=== PATIENT | female | born 1935 | race Caucasian/White ===

== ENCOUNTER → 2017-08-23 | Outpatient (CLI) | payer MEDICARE ==
[~2017-08-23] MED LIST: ALBU8.5H IH; ALP25 PO; CITA-139 PO; CYCL10TA29 PO; ESCI20TA38 PO; ESTR42.5 VG; FLUT16SP20 NS; HYDR-4309 PO; IPRATROPIUM NASAL NS; LEVO88TA42 PO; LISI-351 PO; MECL12.5 PO; METF-407 PO; OMEP-137 PO; OMEP-153 PO; ONDA4TAB97 PO; PEN250 PO; PRED20TA6 PO; SIMV-54 PO; TRAM-420 PO
--- NOTE | 2017-08-27 20:36 | RADIOLOGY IMAGING REPORT ---
FACILITY: [facility] PATIENT NAME: GREYSON PEREZ : [id number] MR: [id number] V: [id number] EXAM DATE: ORDERING PHYSICIAN: SUNSHINE TEE TECHNOLOGIST: Norman Gallardo PROCEDURE: STRESS ECHOCARDIOGRAPHY COMPARISON: None. INDICATIONS: CHEST PAIN FINDINGS: After informed consent the patient was exercised using the Modified Steven protocol. She was able to complete the end of Stage 2 of the Modified Steven protocol at which time she achieved 3.4 Mets & 87% of her predicted maximum heart rate. She had normal blood pressure responses. Her oxygen saturation did decrease from 94% on 2L to 86% at the end of exercise. She had no complaints of any chest pain only complaints of shortness of breath. The patient does have a history of chronic obstructive pulmonary disease. The baseline EKG showed normal sinus rhythm with mild horizontal ST segment depression in the inferolateral leads. With exercise the patient had slightly more increase in ST segment depression reaching approximately 1mm of ST segment depression somewhat down sloping. She had no arrhythmias. ECHOCARDIOGRAPHIC PORTION OF THE STRESS TEST: At rest the patient had normal left ventricular ejection fraction of 70% with a Grade 1 decrease in diastolic function. She had a trace amount of mitral, tricuspid & pulmonic insufficiency & a moderate amount of aortic insufficiency. Estimated right ventricular systolic pressures were within normal ranges. The patient is noted to have mild left ventricular thickening somewhat symmetric measured at 1.2cm respectively on the septal & posterior wall. Also multiple liver cysts were noted. With exercise the patient had normal hyperdynamic response to exercise with no left ventricular segmental wall motion abnormalities noted. CONCLUSION: 1. Normal stress echocardiograph with normal LV function systolically at rest with hyperdynamic response to exercise & low probability of ischemia. 2. Grade 1 mild decrease in diastolic function. 3. Patient has chronic obstructive lung disease & she exercised on oxygen. Her oxygen saturation dropped from 94% & baseline to 86% at maximum exercise. She did complain of being short of breath but no complaints of any chest pains. 4. Patient had mild ST segment depression in the inferolateral leads that did increase with exercise but no specific wall motion abnormalities were noted & the patient had no complaints of any chest pains. 5. Mild concentric left ventricular thickening was noted but no evidence for any outflow tract obstruction. 6. There is a trace of mitral, tricuspid & pulmonic insufficiency with right ventricular systolic pressures within normal ranges. There was a moderate amount of aortic insufficiency with no aortic stenosis. 7. Note was made of multiple liver cysts seen. Dictated by: Makc Batres M.D. on 08/23/2017 at 11:14 Transcribed by: EMELI on 08/27/2017 at 9:30 Approved by: Mack Batres M.D. on 08/27/2017 at 20:34 [facility]
== END ==
LOC: RESP 00:54
PROVIDERS: ATTEND Nurse Practitioner Family
DX: I50.30 Unspecified diastolic (congestive) heart failure (principal); J44.9 Chronic obstructive pulmonary disease, unspecified; R09.02 Hypoxemia; I51.7 Cardiomegaly; I34.0 Nonrheumatic mitral (valve) insufficiency; I07.1 Rheumatic tricuspid insufficiency; I37.1 Nonrheumatic pulmonary valve insufficiency; I35.1 Nonrheumatic aortic (valve) insufficiency; K76.89 Other specified diseases of liver
CPT/HCPCS: 93017; 93325; 93350

== ENCOUNTER → 2017-11-29 | Outpatient (CLI) | payer MEDICARE ==
[~2017-11-29] MED LIST changes: -CITA-139 PO; +CITA-145 PO
--- NOTE | 2017-12-03 09:34 | RADIOLOGY IMAGING REPORT ---
[place] [facility] [place] GREYSON PEREZ : [id number] MR: [id number] V: [id number] EXAM DATE: ORDERING PHYSICIAN: SUNSHINE TEE TECHNOLOGIST: Brissa Amaro PROCEDURE:BILATERAL DIGITAL SCREENING MAMMOGRAM WITH CAD ASSISTED INTERPRETATION & 3D TOMOSYNTHESIS COMPARISON:Prior mammograms 11/11/10, 02/12/07, 12/22/05, 07/19/04. INDICATIONS:SCREENING FINDINGS: Small to moderate amount of fibroglandular tissue is seen throughout the breasts. The parenchymal pattern has remained stable allowing for difference in mammographic technique & patient positioning. There is no evidence of malignant appearing mass, malignant appearing calcifications or other secondary sign of malignancy in either breast. DIAGNOSTIC CATEGORY 1--NEGATIVE. RECOMMENDATIONS: ROUTINE MAMMOGRAM AND CLINICAL EVALUATION. IMPRESSION: BIRADS 1: Negative. No significant abnormality is seen. Dictated by: Latoya Diaz M.D. on 11/29/2017 at 15:41 Transcribed by: MARGARITO on 11/29/2017 at 15:45 Approved by: Latoya Diaz M.D. on 12/03/2017 at 9:33 [facility]
== END ==
LOC: MAMO 02:25
PROVIDERS: ATTEND Nurse Practitioner Family
DX: Z12.31 Encounter for screening mammogram for malignant neoplasm of breast (principal)
CPT/HCPCS: 77063; 77067

== ENCOUNTER 2018-01-09 14:09 | Outpatient (RCR) | payer MEDICARE ==
[~2018-01-09 14:09] MED LIST changes: +CHOL10005 PO; +CITA-141 PO; +LISI-353 PO; +MONT10TA PO
--- NOTE | 2018-01-09 15:09 | RADIOLOGY IMAGING REPORT ---
[place] [facility] [place] NAME: Cheryl Palomino : 1935 MR: [id number] V: [id number] EXAM DATE: ORDERING PHYSICIAN: TOBIAS VILLARREAL TECHNOLOGIST: Location: [facility] [place] Patient: Cheryl Palomino : 1935 Visit/Account:[id number] Date of Sevice: 01/09/2018 Exam type: CHEST PA AND LAT History: COPD difficult to breathing, shortness of breath, asthma Comparison: December 14, 2017. Findings: Again noted is mild hyperinflation lung yousif. No evidence of a pneumothorax or pneumomediastinum T here is no evidence of acute effusions, infiltrates or edema. Cardiac silhouette is normal in size. Small hiatal hernia. There is osteopenia the visualized bones IMPRESSION: 1. Mild hyperinflation lung yousif although no evidence of acute pulmonary consolidation Report Dictated By: Latoya Diaz MD at 01/09/2018 3:03 PM Report E-Signed By: Latoya Diaz MD at 01/09/2018 3:04 PM WSN:[email or web address]
== END 2018-01-09 18:00 | disposition home or self-care (01) ==
LOC: RAD 14:09
PROVIDERS: ATTEND Nurse Practitioner Family
DX: J44.9 Chronic obstructive pulmonary disease, unspecified (principal); R03.0 Elevated blood-pressure reading, without diagnosis of hypertension; I10 Essential (primary) hypertension; R53.83 Other fatigue; E88.89 Other specified metabolic disorders; I34.8 Other nonrheumatic mitral valve disorders; I34.0 Nonrheumatic mitral (valve) insufficiency; I35.1 Nonrheumatic aortic (valve) insufficiency
CPT/HCPCS: 71046; 93306

== ENCOUNTER → 2018-01-23 | Outpatient (CLI) | payer MEDICARE ==
--- NOTE | 2018-01-23 13:38 | RADIOLOGY IMAGING REPORT ---
FACILITY: [facility] [place] PATIENT NAME: Cheryl Palomino : 1935 MR: [id number] V: [id number] EXAM DATE: ORDERING PHYSICIAN: TOBIAS VILLARREAL TECHNOLOGIST: Location: [facility] Patient: Cheryl Palomino : 1935 Visit/Account:[id number] Date of Sevice: 01/23/2018 DEXA Scan Clinical history: Menopause. Comparison: DEXA scan from 03/19/2007. LUMBAR SPINE: The bone mineral density (BMD) measured from L1-L4 correlates with a Z-score of -0.9 and a T-score of -2.6 which is osteoporosis as defined by the World Health Organization. The corresponding risk of f racture in the lumbar spine is 68 times increased compared with a young adult reference population. This value has decrease by 5.3 % since the prior study. More than 5% change is considered significan t. HIP: Bone mineral density (BMD) measured in the LEFT total hip region correlates with a Z-score zero and a T-score of -2 which is osteopenia as defined by the World Health Organization. The corresponding ri sk of fracture in the hip is 4 times increased compared to a young adult reference population. This v alue has decrease by five % since the prior study. More than 5% change is considered significant. T score left femoral neck -2.5 Bone mineral density (BMD) measured in the Femoral Neck region measures 0.687 g/cm?. IMPRESSION: 1. Lumbar spine: Osteoporosis. There has been 5.3% decrease in the bone mineral density since the p revious exam. 2. Left Total Hip: Osteopenia. There has been 5% decrease in the bone mineral density since the pre vious exam. 3. Femoral Neck: Bone Mineral Density is 0.687 g/cm? The next DEXA scan of this patient should include the following sites: L1-L4 and the left hip. FRAX? WHO Fracture Risk Assessment Tool link: <http://www.shef.ac.uk/FRAX/tool.jsp?locationValue=9> PLEASE NOTE: 1) The World Health Organization defines low BMD as follows: T-score Normal > -1 Osteopenia < -1 and > -2.5 Osteoporosis < -2.5 without fractures Established osteoporosis < -2.5 with fractures 2) In general, you may wish to consider: Diagnosis Treatment Follow-up DEXA Normal BMD Prevention 2-3 years Osteopenia Prevention/therapy 1-2 years Osteoporosis Therapy Yearly 3) Fracture risk estimated from the T-score is more accurate for vertebral fractures (often spontane ous) than for hip fractures. Report Dictated By: Latoya Diaz MD at 01/23/2018 1:32 PM Report E-Signed By: Latoya Diaz MD at 01/23/2018 1:34 PM WSN:[email or web address]
== END ==
LOC: RAD 02:17
PROVIDERS: ATTEND Nurse Practitioner Family
DX: Z13.820 Encounter for screening for osteoporosis (principal); M81.0 Age-related osteoporosis without current pathological fracture; M85.80 Other specified disorders of bone density and structure, unspecified site; E89.41 Symptomatic postprocedural ovarian failure
CPT/HCPCS: 77080

== ENCOUNTER 2018-03-12 15:15 | Outpatient (RCR) | payer MEDICARE ==
--- NOTE | 2018-02-20 08:48 | PT INITIAL EVALUATION ---
MEDICAL DIAGNOSIS: lumbar spine pain with movement, essential hypertension TREATMENT DIAGNOSIS: same DATE OF ONSET: 05/23/09 SUBJECTIVE: Cheryl Palomino presents to physical therapy with complaints of low back pain with radiating pain down her L LE to anterior lower leg and into her R LE to her posterior hip region. She reports that she has been dealing with her low back pain for many years and typically gets better and then becomes worse for a period and then gets better. She reports that she typically manages with ice, stretches, and staying more active and she states that the low back pain becomes more manageable but continues to have the pain. She states that the pain has never gone away in a long time. She denies any mechanism of injury. She states that her low back pain with radiating pain has gotten way worse over the last week. She reports that she has been sitting all day long and feels that sitting makes her pain worse. She also reports that rising and in the morning time she has the most pain. She reports that her pain feels better with upright posture, standing, walking, and lying. She reports that her pain is very inconsistent. She reports that she sleeps great at night without any night pain but wakes up in the AM with a lot of pain. She denies an increase in pain with coughing, sneezing, or straining. She denies any imaging. She denies any recent surgeries. She reports that she has had a couple falls in the last 2-3 months but denies any injuries. She denies any unexplained weight loss. She denies any numbness and tingling down her B LE's. She reports that she has been very inactive over that last several months and wants to become more active and eliminate her low back pain. She reports that she feels weaker just because she has not been very actively lately. Pain location is L3-5 spinous process with radiating pain down L LE and R LE and described as . Pain scale is 4 on a ten point pain scale. REHAB PROBLEM LIST: Increased Pain Decreased ROM Decreased Strength Decreased Endurance Decreased Balance Decreased Function Decreased ADL's Decreased Mobility Decreased Gait PREVIOUS MEDICAL HISTORY: See EMR OCCUPATION: Retired OBJECTIVE: Posture: She demonstrates forward head, B rounded shoulders, increased thoracic kyphosis, and decreased lumbar lordosis. ROM: Trunk AROM: flexion: minimal restriction with muscular end feel. extension: moderate restriction with painful end feel. side gliding R: minimal restriction with painful end feel. side gliding L: NIL with normal end feel. Strength: B hip flexion, abduction, extension, B knee flexion and extension, and B ankle PF and DF: 4/5 with no pain. Palpation: TTP: L3-5 spinous processes, R and L PSIS, radiating pain into R posterior hip and radiating pain into L anterior lower leg. Sensation: Intact L2-S1 Special Tests: Repeated extension in standing: centralizing pain during the test and centralized pain following the test. Mobility: Independent Gait: She demonstrates decreased velocity, decreased B step length, decreased B UE movement, decreased pelvic rotation, increased base of support, decreased heel strike at initial loading, and decreased push off at terminal stance. ASSESSMENT: Cheryl will benefit from skilled physical therapy to address listed impairments to improve function and QOL. Based on her examination, her provisional classification is posterior derangement that centralized her low back pain with extension based principles. She is independent on her posture and specific exercise. Her prognosis is excellent based upon directional preference and centralized low back as long as she continues to perform her specific exercise. Short Term Goals 2 weeks: Pt will demonstrate centralized low back pain and improvements in trunk AROM in all directions to improve function and QOL. 4 weeks: Pt will demonstrate centralized and abolished low back pain and return to full trunk AROM in all directions to improve function and QOL. 6 weeks: Pt will continue to demonstrate abolished low back pain and 100% return to function to improve function and QOL. Patient's Goals eliminate low back pain and get back to being more active PLAN: Patient to be seen for Manual Therapy/STM/MET Strengthening/condition Range of Motion Spinal Stabilization Work Hardening/Cond Stretching Neuromuscular Re-ed Closed Chain Program Posture/Body mechanics Gait Trg/Balance Trg Home Exercise Program Therapeutic Activities 2x/Week for 6 Weeks If you have any questions, comments, or concerns about this report or plan, please contact me at . Thank you, Homer De La Cruz, PT, DPT MTDD
[~2018-03-12 15:15] MED LIST changes: -HYDR-4309 PO; +HYDR-653 PO
== END 2018-03-12 18:00 | disposition home or self-care (01) ==
LOC: PT 15:15
PROVIDERS: ATTEND Nurse Practitioner Family
DX: M54.5 Low back pain (principal); R29.6 Repeated falls; R53.1 Weakness; I10 Essential (primary) hypertension
CPT/HCPCS: 97161

== ENCOUNTER → 2018-03-19 | Outpatient (CLI) | payer MEDICARE ==
[~2018-03-19] MED LIST changes: +DENOSUMAB 60 MG/1 ML SYR SUBQ ONE
== END ==
LOC: SPU 05:49
PROVIDERS: ATTEND Nurse Practitioner Family
DX: M81.0 Age-related osteoporosis without current pathological fracture (principal); N95.9 Unspecified menopausal and perimenopausal disorder; E55.9 Vitamin D deficiency, unspecified
CPT/HCPCS: 96372; J0897

== ENCOUNTER → 2018-09-12 | Outpatient (CLI) | payer MEDICARE ==
[2018-09-12 13:46] VITALS: BP 168/77
== END ==
LOC: SPU 10:14
PROVIDERS: ATTEND Nurse Practitioner Family
DX: M81.0 Age-related osteoporosis without current pathological fracture (principal); N95.9 Unspecified menopausal and perimenopausal disorder; E55.9 Vitamin D deficiency, unspecified
CPT/HCPCS: 96372; J0897

== ENCOUNTER → 2018-11-05 | Outpatient (CLI) | payer MEDICARE ==
[~2018-11-05] MED LIST changes: -DENOSUMAB 60 MG/1 ML SYR SUBQ ONE
[2018-11-05 16:29] LABS: PLATELET COUNT, AUTOMATED 314 K/uL (150-450)
== END ==
LOC: LAB 16:16
PROVIDERS: ATTEND Surgery
DX: Z01.812 Encounter for preprocedural laboratory examination (principal); R14.0 Abdominal distension (gaseous); R10.11 Right upper quadrant pain
CPT/HCPCS: 36415; 82040; 82247; 82248; 82310; 82374; 82435; 82565; 82947; 83516; 84075; 84132; 84155; 84295; 84450; 84460; 84520; 85025

== ENCOUNTER → 2018-11-07 | Outpatient (CLI) | payer MEDICARE ==
--- NOTE | 2018-11-07 11:11 | RADIOLOGY IMAGING REPORT ---
[place] [facility] [place]IENT NAME: Cheryl Palomino : 1935 MR: [id number] V: [id number] EXAM DATE: ORDERING PHYSICIAN: ALEXIS BRIDGES TECHNOLOGIST: Location: [facility] Patient: Cheryl Palomino : 1935 Visit/Account:[id number] Date of Sevice: 11/07/2018 GALLBLADDER HISTORY: Right upper quadrant pain COMPARISON: CT abdomen and pelvis August 08, 2006 FINDINGS: Gallbladder: Unremarkable; no stones or sludge. Liver: There are numerous cysts seen throughout the liver ranging in size up to 6.4 cm in diameter Common duct: Normal, 5.1 mm diameter. Pancreas: Partially obscured by bowel, visualized aspects unremarkable. Right kidney: Right kidney appears unremarkable measuring 9 cm in length Upper abdominal aorta and IVC: Patent. Ascites: None visualized. IMPRESSION: Numerous hepatic cysts ranging in size up to 6.4 cm in diameter Report Dictated By: Latoya Diaz MD at 11/07/2018 11:01 AM Report E-Signed By: Latoya Diaz MD at 11/07/2018 11:03 AM WSN:[email or web address]
== END ==
LOC: US 00:33
PROVIDERS: ATTEND Surgery
DX: K76.89 Other specified diseases of liver (principal)
CPT/HCPCS: 76705

== ENCOUNTER → 2018-11-15 | Outpatient (CLI) | payer MEDICARE ==
[~2018-11-15] MED LIST changes: +IOPAMIDOL 76% 100 ML INFUS BTL 100 ML ONE
--- NOTE | 2018-11-15 13:11 | RADIOLOGY IMAGING REPORT ---
FACILITY: [facility] PATIENT NAME: Cheryl Palomino : 1935 MR: [id number] V: [id number] EXAM DATE: ORDERING PHYSICIAN: ALEXIS BRIDGES TECHNOLOGIST: Location: [facility] [place] Patient: Cheryl Palomino : 1935 Visit/Account:[id number] Date of Sevice: 11/15/2018 CT abdomen and pelvis with and without contrast. Indication: Bloating. Right upper quadrant pain. Comparison: None available. . Technique: Axial CT images were obtained through the abdomen and pelvis during injection of nonioni c iodinated intravenous contrast. Reformatted coronal and sagittal images were also obtained. Pre con trast and delayed images were also obtained. Contrast: 75 ml of Isovue-370 IV contrast. One of the following dose optimization techniques was utilized in the performance of this exam: Autom ated exposure control; adjustment of the mA and/or kV according to the patient's size; or use of an i terative reconstruction technique. Specific details can be referenced in the facility's radiology C T exam operational policy. Findings: Lower lung yousif: There are changes of centrilobular emphysema within the lung bases with peripheral scarring. There is a small to intermediate-sized hiatal hernia. Descending thoracic aorta is ather osclerotic. Liver: There are numerous round low-attenuation lesions identified within the liver. These are june tible with numerous hepatic cysts. One of these along the posterior margin of the right hepatic lobe (image 35) contains a punctate internal density which may be a calcification. This does not enhance on the portal venous or delayed phases and is likely a cyst with some internal complexity. No intra hepatic biliary dilatation is seen. No enhancing liver lesion is identified. Biliary: The gallbladder appears partially contracted. No calcified stones. No dilatation of the co mmon bile duct. Pancreas: Normal appearance. Spleen: Normal appearance. Adrenal glands: Unremarkable. Kidneys / retroperitoneum: No stones or hydronephrosis. Tiny left midpole cyst. Bowel / peritoneum / mesenteries: Scattered sigmoid colon diverticula. No evidence of diverticulitis . No small bowel dilatation or evidence of small bowel obstruction. Lymph node assessment: No pathologic adenopathy identified. Pelvic structures: Previous hysterectomy. No free fluid. Calcification is associated with the le ft ovary/adnexa. This measures 10 mm in length. Uncertain if this is within the ovary or within the adnexa. Another calcification is associated with the right side of the vaginal cuff. Vessels: Moderately diffuse atherosclerotic calcifications seen throughout a nonaneurysmal abdominal aorta and branches. The infrarenal abdominal aorta is focally ectatic measuring up to 2.4 x 2.3 cm i n greatest dimension. No aneurysm. Musculoskeletal / Body wall: Multilevel degenerative disc disease is present most pronounced at L2-L3 . No compression deformity. There are small fat-containing bilateral inguinal hernias. IMPRESSION: 1. No acute inflammatory process within the abdomen or the pelvis. 2. Small to intermediate-sized hiatal hernia. 3. Numerous hepatic cysts. 4. Scattered colonic diverticula without evidence of diverticulitis. 5. Prior hysterectomy. Nonspecific calcification associated with the left ovary/left adnexa. Report Dictated By: Thee Hoover at 11/15/2018 12:48 PM Report E-Signed By: Thee Hoover at 11/15/2018 1:03 PM ALMA ROSAN:AMICIVN
== END ==
LOC: CT 03:46
PROVIDERS: ATTEND Surgery
DX: K44.9 Diaphragmatic hernia without obstruction or gangrene (principal); K38.2 Diverticulum of appendix; K76.89 Other specified diseases of liver; Z90.710 Acquired absence of both cervix and uterus
CPT/HCPCS: 74178; Q9967

== ENCOUNTER → 2018-11-21 | Outpatient (CLI) | payer MEDICARE ==
[~2018-11-21] MED LIST changes: +BARIUM SULFATE 176 GM BTL PO ONE; +BARIUM SULFATE 340 GM POWD ONE; -IOPAMIDOL 76% 100 ML INFUS BTL 100 ML ONE
--- NOTE | 2018-11-21 13:53 | RADIOLOGY IMAGING REPORT ---
[place] [facility] [place]: Cheryl Palomino : 1935 MR: [id number] V: [id number] EXAM DATE: ORDERING PHYSICIAN: ALEXIS BRIDGES TECHNOLOGIST: Location: [facility] Patient: Cheryl Palomino : 1935 Visit/Account:[id number] Date of Sevice: 11/21/2018 XR UPPER GI & SM BOWEL HISTORY: Post prandial bloating, RUQ epigastric pain COMPARISON: None. FINDINGS: There is a small hiatal hernia present. Esophagus is otherwise normal. Gastric mucosa within the he rnia is slightly irregular. Remainder the of stomach is normal in appearance. Duodenal bulb and swe ep are normal. There is normal transit time through the small bowel. Terminal ileum is visualized a nd normal and small bowel is unremarkable in appearance. No evidence of strictures or obstruction. Patient reports a history of constipation but there is no appreciable colonic fecal retention of this exam. Fluoroscopy time: 1.6 minutes Dose: DAP: 1682 microGy-m2 IMPRESSION: Moderate size hiatal hernia. Slightly Irregular folds seen within the herniated gastric mucosa raise s concern for gastritis. Malignancy less likely although not entirely excluded. Remainder normal Report Dictated By: Hansel Vega MD at 11/21/2018 1:34 PM Report E-Signed By: Hansel Vega MD at 11/21/2018 1:45 PM WSN:[email or web address]
== END ==
LOC: RAD 00:29
PROVIDERS: ATTEND Surgery
DX: K44.9 Diaphragmatic hernia without obstruction or gangrene (principal)
CPT/HCPCS: 74245